=== PATIENT | female | born 1965 | race Caucasian/White ===

== ENCOUNTER → 2021-05-12 | Outpatient (CLI) | payer OTHER | LOC: COL.RAD 13:17 | DX: M25.551 Pain in right hip (principal) | CPT/HCPCS: J3301; Q9967 ==

== ENCOUNTER → 2021-08-02 | Outpatient (CLI) | payer OTHER | LOC: MHCPAIN 12:11 | DX: M47.812 Spondylosis without myelopathy or radiculopathy, cervical region (principal); M54.16 Radiculopathy, lumbar region; M53.3 Sacrococcygeal disorders, not elsewhere classified; M54.2 Cervicalgia | CPT/HCPCS: G0463 ==

== ENCOUNTER → 2022-02-24 | Outpatient (CLI) | payer OTHER | LOC: MHCPAIN 08:00 | DX: M53.3 Sacrococcygeal disorders, not elsewhere classified (principal); M47.817 Spondylosis without myelopathy or radiculopathy, lumbosacral region; M54.16 Radiculopathy, lumbar region ==

== ENCOUNTER → 2022-04-05 | Outpatient (CLI) | payer OTHER | LOC: MHCPAIN 12:18 | DX: M47.817 Spondylosis without myelopathy or radiculopathy, lumbosacral region (principal); M54.50 Low back pain, unspecified; M53.3 Sacrococcygeal disorders, not elsewhere classified | CPT/HCPCS: G0463 ==

== ENCOUNTER → 2022-05-02 | Outpatient (CLI) | payer OTHER | LOC: MHCPAIN 09:08 | DX: M47.817 Spondylosis without myelopathy or radiculopathy, lumbosacral region (principal); M54.59 Other low back pain; M53.3 Sacrococcygeal disorders, not elsewhere classified ==